=== PATIENT | male | born 1995 | race Caucasian/White ===

== ENCOUNTER 2024-03-01 20:55 | Emergency (ER) | payer OTHER, SELFPAY ==
[2024-03-01 21:06] VITALS: BP 129/63; PULSE 89; RESP 16; TEMP 36.7; O2SAT 100; BMI 30.1
--- NOTE | 2024-03-01 21:08 | ECG_ITS ---
Test Reason : SYNCOPE Blood Pressure : / mmHG Vent. Rate : 084 BPM Atrial Rate : 084 BPM P-R Int : 170 ms QRS Dur : 112 ms QT Int : 372 ms P-R-T Axes : 043 099 032 degrees QTc Int : 439 ms Normal sinus rhythm with sinus arrhythmia Rightward axis Borderline ECG No previous ECGs available Referred By: Fahad Choudhary Electronically Signed By:STEVEN ALAS MD
--- NOTE | 2024-03-01 21:11 | ED.GENADULT ---
HPI - General Adult General Chief complaint: Syncope Stated complaint: pre syncope, fall +headstrike on concrete Time Seen by Provider: 03/02/24 01:34 Source: patient Mode of arrival: ambulatory Limitations: no limitations History of Present Illness ED Provider: Dr. Amy Torres HPI narrative: Patient comes to the emergency room complaining of near syncopal episode. 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 Patient was lower down to a couch. Patient tried getting up again shortly after to go urinate. Then patient had similar symptoms all over again. Patient states the unsteadiness is lasted for approximately 1 hour. Patient denies hitting her side or losing consciousness. However, patient reports that he has been taking Lamictal and Wellbutrin which is prescribed to him. Patient states that today he took double dose due to the increase of stress in his job today. At this time, patient is asymptomatic. Patient states that he does not have any chest pain or shortness of breath. Patient states approximately 1 year ago he had similar symptoms. Related Data Allergies Allergy/AdvReac Type Severity Reaction Status Date / Time No Known Allergies Allergy Verified 03/01/24 21:10 Review of Systems Review of Systems: Constitutional : No Weight loss, No Fever, No Chills, No Night Sweats, No Fatigue, No Malaise ENT/Mouth : No Hearing loss, No Ear Pain, No Nasal Congestion, No Sinus Pain, No Hoarseness, No sore throat, No Rhinorrhea, No Swallowing Difficulty Eyes: No Eye Pain, No Swelling, No Redness, No Foreign Body, No Discharge, No Vision Changes Cardiovascular : No Chest Pain, No SOB, No Dyspnea on Exertion, No Orthopnea, No Edema, No Palpitations Respiratory : No Cough, No Sputum, No Wheezing, No Smoke Exposure, No Dyspnea Gastrointestinal : No Nausea, No Vomiting, No Diarrhea, No Constipation, No abdominal Pain, No Hematochezia, No Melena Genitourinary : no irregular bleeding, No Dysuria, No Urinary Frequency, No Hematuria, No Urinary Incontinence, No Urgency, No Flank Pain, No Urinary Flow Changes, No Hesitancy Musculoskeletal : No joint pain, No Myalgias, No Joint Swelling Skin : No Skin Lesions, No rash Neuro : No Weakness, No Numbness, No Paresthesias, No Loss of Consciousness, no headache, complaining of near syncopal episode, dizziness Psych : No Anxiety/Panic, No Depression, No SI/HI/AH/VH, No Social Issues, Heme/Lymph: No Bruising, No Bleeding,No Lymphadenopathy Endocrine : No Polyuria, No Polydipsia, No Temperature Intolerance PMFSH Social History Social History Smoked in Last 30 Days: No Use of substances other than those prescribed or required for medical reasons: No Advance Directives: No Advance Directives Information Provided: Yes Physical Exam ED Vital Signs: Vital Signs - 24 hr 03/01/24 21:06 03/02/24 00:50 03/02/24 00:51 Temperature 98.1 F 98.9 F Pulse Rate 89 74 71 Respiratory Rate 16 18 Blood Pressure 129/63 107/61 124/68 Pulse Oximetry 100 100 Oxygen Delivery Method Room Air Room Air 03/02/24 00:51 03/02/24 00:51 03/02/24 02:41 Temperature 98.1 F Pulse Rate 71 76 78 Respiratory Rate 18 Blood Pressure 124/68 130/80 121/68 Pulse Oximetry 100 Oxygen Delivery Method Room Air 03/02/24 02:51 Temperature 98.1 F Pulse Rate 78 Respiratory Rate 18 Blood Pressure 121/68 Pulse Oximetry 100 Oxygen Delivery Method Room Air BMI result Body Mass Index 30.1 Const Other: Appearance: Alert. Oriented X3. No acute distress. Eyes: Pupils equal, round and reactive to light. ENT: Pharynx normal. Neck: Normal inspection. Neck supple. No lymph nodes noted. No crepitus CVS: Normal heart rate and rhythm. Pulses normal. Normal S1 and S2 Respiratory: No respiratory distress. Breath sounds normal. No Wheezing. No rales Abdomen: Soft and nontender. No rigidity. No distention. Skin: Skin warm and dry. Normal skin color. Normal skin turgor. Extremities: No lower extremity edema. No Lacerations. No Rash Neuro: Oriented X 3. No motor deficit. No sensory deficit. Moving all extremities. No slurred speech. CN 2 through 12 grossly intact Psych: calm, cooperative, normal affect Course Course Course Narrative: RME: DONe by HOLLAND Choudhary. 29 yold male presents to the ED for pre-syncopal vs syncopal episode. Patient syncopized at work. fell unto the ground. Patient states before that he was having some twitching but never lost complete consciousness. Coworkers denies patient having any urinary/bowel incontinence or any tonic-clonic shaking. NIH score is 0. Neuro exam intact. EKG labs ordered. Medical Decision Making Medical Decision Making [facility] Narrative: My interpretation of labs, normal hematology, normal chemistry, normal coagulation, D-dimer negative. Valproic acid level therapeutic. Lamotrigine level pending -patient states that he takes Wellbutrin and lamotrigine as mood stabilization, not for seizures. -my interpretation of EKG: Normal sinus rhythm, heart rate 84, no ST segment depression or elevation, no T-wave inversion, QTC 439 -I discussed the above-mentioned with the patient. If patient continues having the symptoms, patient would benefit from a Holter monitor evaluation. At this time, patient's vitals are normal, orthostatic vitals negative, patient is asymptomatic -patient being discharged in stable condition Differential Diagnosis Differential Diagnoses: The differential diagnosis associated with the presentation includes (Orthostatic hypotension, near-syncope, medication side effect) Admission/Observation Consideration of admission/observation: Escalation of care including admission/observation considered (Given patient's symptoms, observation was considered) Lab Data [facility] Lab Attestation statement: I reviewed the patient's lab results. 03/01/24 21:20 03/01/24 21:20 Labs: Lab Results 03/01/24 Range/Units 21:20 WBC 5.6 (4.8-10.8) X10*3/uL RBC 4.49 L (4.60-5.80) X10*6/uL Hgb 14.4 (14.0-18.0) g/dl Hct 41.6 L (42.0-52.0) % MCV 92.7 (80.0-98.0) fL MCH 32.1 (27.0-33.0) pg MCHC 34.6 (31.0-36.0) g/dl RDW 11.8 (11.0-16.0) % Plt Count 256 (160-400) X10*3/uL MPV 9.5 (9.4-12.4) fL Immature Gran % (Auto) 0.5 H (0.0-0.4) % Neut % (Auto) 57.4 (45-73) % Lymph % (Auto) 30.9 (20-40) % [place] % (Auto) 10.1 (2-11) % Eos % (Auto) 0.4 (0-4) % Baso % (Auto) 0.7 (0-2) % Lymph # (Auto) 1.7 (1.2-4.9) X10*3/uL [place] # (Auto) 0.6 (0.1-1.2) X10*3/uL Eos # (Auto) 0.0 (0.0-0.4) X10*3/uL Baso # (Auto) 0.0 (0.0-0.2) X10*3/uL Abs Immat Gran (auto) 0.03 (0.00-0.03) X10*3/uL Absolute Neuts (auto) 3.2 (2.0-8.3) x10*3/uL Absolute Nucleated RBC 0.000 (0.0-0.012) X10*3/uL Nucleated RBC % (auto) 0.0 (0.0-0.2) /100WBC PT 11.1 (10.9-12.4) SEC INR 1.0 (0.9-1.1) APTT 29.0 (26.0-36.8) SEC D-Dimer High Sensitivty < 150 NG/ML Sodium 141 (135-145) mmol/L Potassium 4.2 (3.3-5.1) mmol/L Chloride 104 (96-108) mmol/L Carbon Dioxide 27 (22-29) mmol/L Anion Gap 14 (12-20) BUN 13 (9-16) mg/dL Creatinine 0.98 (0.5-1.4) mg/dL Estim Creat Clear Calc 131.1 Estimated GFR > 60 Random Glucose 101 (60-115) mg/dL Calcium 9.5 (8.4-10.2) mg/dL Total Bilirubin 0.7 (0.0-1.0) mg/dL AST 16 (5-37) U/L ALT 12 (0-40) U/L Alkaline Phosphatase 50 (39-117) U/L Troponin I High Sens < 2.7 (<3.5-35.0) ng/L Total Protein 7.4 (6.5-8.0) g/dL Albumin 4.9 (3.5-5.0) g/dL Valproic Acid 100.3 H (50.0-100.0) mcg/mL Critical Care Time Critical Care Time Critical Care Time: Yes Total Critical Care Time: 30 Attestation: I have personally provided critical care time. Time includes review of lab data, radiology results, discussion with consultants, and monitoring for potential decompensation. Intervention performed as documented. Discharge Plan Discharge Clinical Impression: Near syncope Patient Disposition: Home, Self-Care Instructions: Near Syncope (ED) Additional Instructions: Please follow-up with your primary care physician tomorrow. If needed, your primary care physician may refer you to cardiology for a Holter monitor evaluation. If you have any worsening or new symptoms, please return to the emergency room or call 911 Stand Alone Forms: Work/School Release Interventions: ED Discharge Assessment Last Done: 03/02/24 02:51 Discharge Date/Time: 03/02/24 02:53 Print Language: Malagasy
[2024-03-01 21:24] LABS: MANUAL DIFF FLAG NO
[2024-03-01 21:27] LABS: Basophils Percent Auto 0.7 % (0-2); Eosinophils Percent Auto 0.4 % (0-4); Hematocrit 41.6 % (42.0-52.0); Hemoglobin 14.4 g/dl (14.0-18.0); Imm Gran Abs Auto 0.03 X10*3/uL (0.00-0.03); Imm Gran Pct Auto 0.5 % (0.0-0.4); Lymphocytes Absolute Auto 1.7 X10*3/uL (1.2-4.9); Lymphocytes Percent Auto 30.9 % (20-40); Mean Corpuscular HGB Conc 34.6 g/dl (31.0-36.0); Mean Corpuscular Hemoglobin 32.1 pg (27.0-33.0); Mean Corpuscular Volume 92.7 fL (80.0-98.0); Mean Platelet Volume 9.5 fL (9.4-12.4); Monocytes Absolute Auto 0.6 X10*3/uL (0.1-1.2); Monocytes Percent Auto 10.1 % (2-11); Neutrophils Absolute Auto 3.2 x10*3/uL (2.0-8.3); Neutrophils Percent Auto 57.4 % (45-73); Platelet Count 256 X10*3/uL (160-400); Red Blood Count 4.49 X10*6/uL (4.60-5.80); Red Cell Distribution Width 11.8 % (11.0-16.0); White Blood Count 5.6 X10*3/uL (4.8-10.8)
[2024-03-01 21:33] LABS: Prothrombin Time 11.1 SEC (10.9-12.4)
[2024-03-01 21:37] LABS: Valproate 100.3 mcg/mL (50.0-100.0)
[2024-03-01 21:40] LABS: Alanine Aminotransferase 12 U/L (0-40); Albumin Level 4.9 g/dL (3.5-5.0); Alkaline Phosphatase 50 U/L (39-117); Anion Gap 14 (12-20); Aspartate Amino Transferase 16 U/L (5-37); Bilirubin Total 0.7 mg/dL (0.0-1.0); Blood Urea Nitrogen 13 mg/dL (9-16); Calcium 9.5 mg/dL (8.4-10.2); Carbon Dioxide 27 mmol/L (22-29); Chloride 104 mmol/L (96-108); Creatinine Clr Calc Pharmacy 131.1; Estimated Glomerular Filt Rate > 60; Glucose Random 101 mg/dL (60-115); Potassium 4.2 mmol/L (3.3-5.1); Sodium 141 mmol/L (135-145); Total Protein 7.4 g/dL (6.5-8.0)
[2024-03-01 21:47] LABS: Troponin-I High Sensitivity < 2.7 ng/L (<3.5-35.0)
--- NOTE | 2024-03-02 00:47 | PC.NURSE ---
pt brought in from work. 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 pt 'stumbled' out of vehicle on arrival, walked several feet and experienced a syncopal episode. pt reports pre and post syncopal muscle twitching. pt reports headache prior to syncopal episode. pt a&ox4, vss, respirations even and unlabored. pt reports lightheaded feeling 'comes in waves'. pt work carpenter supervisor at bedside.
[2024-03-02 00:50] VITALS: BP 107/61; PULSE 74
[2024-03-02 00:51] VITALS: BP 124/68; BP 130/80; PULSE 71; PULSE 76; RESP 18; TEMP 37.2; O2SAT 100
[2024-03-02 02:12] LABS: D Dimer High Sensitivity < 150 NG/ML
[2024-03-02 02:41] VITALS: BP 121/68; PULSE 78; RESP 18; TEMP 36.7; O2SAT 100
--- NOTE | 2024-03-02 02:41 | MHC.EDTECH ---
Hourly rounds and vitals completed,patient is awaiting discharge at this time.
[2024-03-02 02:51] VITALS: BP 121/68; PULSE 78; RESP 18; TEMP 36.7; O2SAT 100
[2024-03-06 08:44] LABS: Lamotrigine Lamictal 11.1 mcg/mL (2.5-15.0)
== END 2024-03-02 02:53 | disposition home or self-care (01) ==
PROVIDERS: Physician Assistant; Emergency Provider Emergency Medicine
DX: R55 Syncope and collapse (principal); I49.8 Other specified cardiac arrhythmias; Z79.899 Other long term (current) drug therapy
CPT/HCPCS: 36415; 80053; 80164; 80175; 84484; 85025; 85379; 85610; 85730; 93005; 99283; 99285

== ENCOUNTER → 2024-03-01 21:08 | Outpatient (BNV) | payer OTHER, SELFPAY | PROVIDERS: Emergency Provider Emergency Medicine; Visit Provider Internal Medicine Cardiovascular Disease | DX: R55 Syncope and collapse (principal) | CPT/HCPCS: 93010 ==